=== PATIENT | male | born 2005 | race Caucasian/White ===

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

== ENCOUNTER 2025-01-26 10:18 | Emergency (ER) | payer SELFPAY ==
--- NOTE | 2025-01-26 10:29 | ED_ITS ---
Discharge Plan Disposition Patient Disposition: Home, Self-Care Condition: Good Prescriptions Prescriptions: No Action Afrin (oxymetazoline) 0.05 % mist 2 spray intranasal Q12H PRN (Reason: nose bleed) 3 Days Qty: 15 0RF Referrals Follow up/Referrals: Logan Oviedo [Primary Care Provider, Medical] - See instructions Activity Restrictions/Add. Instructions Additional Instructions/Restrictions: If your nose bleeding returns please use Afrin in both sides of the nose, pinch yournose shut, and lean forward. 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 You should also use Vaseline inside of the nose to prevent your nasal passages from drying out from cold weather and causing bleeding. If you have recurrent bleeding that will not stop please return to the ER. Clinical Impressions Clinical Impression: Epistaxis Print Language Print Language: Serbian Discharge ED Provider: Mitch Andujar General Adult HPI General Stated complaint: nose bleeds appr. 3 wks Time Seen by Provider: 01/26/25 10:20 History of Present Illness HPI narrative: This is a 19-year-old male patient, with no past medical history no daily medications, who is presenting to the emergency department today for evaluation of epistaxis. Patient states that he has had epistaxis nearly daily over the course of the last 1 to 2 weeks. He states that over the last 2 to 3 days he has also felt under the weather with upper respiratory symptoms, including rhinorrhea and congestion. He has tried compressing his nose and leaning forward when his bleeding occurs. He states that today he performed this maneuver but his nose continued bleeding after approximately 15 minutes so he went to an urgent care for evaluation and they referred him here for higher level of care. By the time he arrived here his nasal bleeding had stopped Related Data Previous Rx's ?Medication ?Instructions ?Recorded oxymetazoline 0.05 % nasal mist 2 spray intranasal Q12 H PRN nose 07/03/22 (Afrin (oxymetazoline)) bleed 3 days #15 mL Allergies Allergy/AdvReac Type Severity Reaction Status Date / Time No Known Allergies Allergy Verified 07/03/22 20:23 [facility] Disclaimer: The information contained in this section may have been updated after the patient was seen, as this information can be updated by other users. Social History (Updated 07/04/22 @ 08:51 by Brown Brown APRN) Smoking Status: Never smoker alcohol intake: never current occupational status: employed Travel in the last 8 weeks?: None ROS Obtained: Yes Systems reviewed as appropriate & no additional complaints except as documented Physical Exam General General appearance: other (See MDM) Respiratory Respiratory exam: Present other (See MDM) Cardiovascular Cardiovascular exam: Present other (See MDM) Neurological Exam Neurological exam: Present other (See MDM) Medical Decision Making Medical Records Medical records reviewed: Yes I reviewed the patient's medical records. Screening: Per USPSTF and CDC recommendations, given the prevalence of disease in our region, it is our hospital?s policy to screen for HIV and viral Hepatitis for all patients aged 18 and over and those with ongoing risk factors. Marcello Inquiry Pt receiving controlled substance: No Marcello was queried for this patient: No Medical Decision Narrative: In summary, this is a 19-year-old male patient who is presenting to the Emergency Department today for evaluation of epistaxis. The patient states that this epistaxis began approximate 15 minutes prior to arrival and he tried to seek care at an urgent care treatment center and they referred him here for further evaluation. Symptoms resolved by the time of arrival. He does not have any comorbidities of the complicate his medical management or care. On initial evaluation of the patient they were resting comfortably in no acute distress and nontoxic in appearance. They are hemodynamically stable, saturating well room air, and are neurologically intact. On physical examination his heart and lungs clear to auscultation bilaterally. There is no hemorrhage actively down the posterior pharynx. Upon examination of the nares the patient does have mucosal erosion of the anterior nasal septum of the right nare. There is dried blood present in both nares. There is no active bleeding currently. Differential diagnosis includes anterior epistaxis, posterior epistaxis, anemia, coagulopathy, among others. The patient is not currently having any symptoms of anemia such as orthostatic near syncope, lightheadedness, dyspnea, or pallor. We have discussed obtaining labs to check his coagulation studies and blood counts and the patient does not want to pursue this at this time. We have discussed precautionary measures she can take including [place] nasal saline spray as well as Vaseline within the naris to prevent bleeding and using Afrin nasal spray when bleeding occurs to obtain hemostasis. The patient would like to use these conservative therapies at home and forego further testing here today. At this time all questions have been answered and all parties are agreeable with the decision to discharge Critical Care Critical Care Time Critical Care Time: No
[2025-01-26 10:33] VITALS: BP 130/78; PULSE 80; RESP 20; TEMP 36.8; O2SAT 98
--- OUTSIDE RECORDS SUMMARY | 2025-01-26 10:35 | XMS_ITS | Clinical Summary ---
Author Organization [facility] Address [address] [place] [address] Care Team Providers Care Director Of Application Development Name Role Phone Pcp, No Primary Care Provider Unavailabl e Allergies No known active allergies Medications No known medications Social History Tobacco Use Types Packs/Day Years Used Date Smoking Tobacco: Never Assessed Sex and Gender Information Value Date Recorded Sex Assigned at Not on file Legal Sex Male 2:24 PM EDT Gender Identity Not on file Sexual Orientation Not on file Last Filed Vital Signs Vital Sign Reading Time Taken Comments Blood Pressure 126/86 11/26/2022 11:27 AM EDT Pulse 68 11/11/2022 2:28 PM EDT Temperature 37.2 C (99 F) 11/11/2022 2:28 PM EDT Respiratory Rate 20 11/11/2022 2:28 PM EDT Oxygen Saturation 97% 11/11/2022 2:28 PM EDT Inhaled Oxygen Concentration - - Weight 67.6 kg (149 lb) 11/26/2022 11:27 AM EDT Height 165.1 cm (5' 5 ) 11/26/2022 11:27 AM EDT Body Mass Index 24.79 11/26/2022 11:27 AM EDT Body Mass Index Percentile 83.02% 11/26/2022 11: 27 AM EDT Growth Chart: CDC (Boys, 2-2 0 Years) Plan of Treatment Health Maintenance Due Date Last Done Comments [facility]-Depression Screening 2005 [facility]-HIV Screening 2005 [facility]-Hepatitis C Screening 2005 [facility]-Infant/Child/Adol SDOH Screenings 2005 Fluoride Varnish 03/29/2006 HPV Vaccines (2 - Male 2-dose series) 04/23/2017 10/22/2016 [facility]- SDOH Screenings 07/28/2023 [facility]-Adult SDOH Screenings 07/28/2023 [id number] Vaccine ( season) 2024 [facility]-Influenza Vaccine (#1) 10/25/202412/22, 01/19/2014, 02/02/2013, Additional history exists [facility]-DTaP,Tdap,and Td Vaccines (7 - Td or Tdap) 10/22/2026 10/22/2016, 09/01/2009, 03/12/2007, Additional history exists [facility]-Zoster Vaccines (1 of 2) 07/28/2055 09/01/2009, 09/02/2006, 07/29/2006 [facility]-Pneumococcal Vaccine: Pediatrics (0 to 5 Years) and At-Risk Patients (6 to 49 Years) Aged Out 07/08/2006, 05/06/2006 No longer eligibl e based on patient's age to complete this topic [facility]-HIB Vaccines Completed 09/02/2006, , 05/06/2006 [facility]-Hepatitis B Vaccines Completed 007, 07/08/2006, 05/06/2006 [facility]-Hepatitis A Vaccines Completed 03/12/2007, 08/24 [facility]-IPV Vaccines Completed 09/01/2009, 11/2006, 07/08/2006, Additional history exists [facility]-Varicella Vaccines Completed 0, 09/02/2006, 07/29/2006 [facility]-Rotavirus Vaccines Aged Out No lo nger eligible based on patient's age to complete this topic Insurance [employer] Care Teams Director Of Application Development Relationship Specialty Start Date End Date PcpBibi [facility] [place] [address] PCP - General Family Medicine 11/11/22
--- OUTSIDE RECORDS SUMMARY | 2025-01-26 10:35 | XMS_ITS | Clinical Summary ---
Author Organization [facility] Address [address] [place] [address] Care Team Providers Care Registered Dietetic Technician Name Role Phone Logan Oviedo MD Primary Care Provider [phone] Allergies No known active allergies Medications No known medications Social History Tobacco Use Types Packs/Day Years Used Date Smoking Tobacco: Never Assessed Abuse Screen Answer Date Recorded Unsafe at Home or Work/School Not on file Feels Threatened by Someone? Not on file 12/2022 Does Anyone Keep You from Co ntacting Others or Doint Things Outside the Home? Not on file 12/04/2022 Physical Sign of Abuse Present Not on file 1 Housing Stability Answer Date Recorded Current Living Arrangements Not on file 11/24 Potentially Unsafe Housing Conditions Not on mitch e 12/04/2022 Family and Community Support Answer Luis Eduardo e Recorded Help with Day-to-Day Activities Not on file 12/04/2022 Lonely or Isolated Not on file 12/04/2022 Employment Answer Date Recorded Do you want help finding or keeping work or a adina b? Not on file 12/04/2022 Disabilities Answer Date Recorded Concentrating, Remembering, or Making Decisions Difficulty Not on file 12/04/2022 Doing Errands Independently Difficulty Not on fi le 12/04/2022 Education Answer Date Recorded Help with school or training? Not on file Preferred Language Not on file 12/04/2022 Sex and Gender Information Value Date Recorded Sex Assigned at Not on file Legal Sex Male 1:58 PM EDT Gender Identity Not on file Sexual Orientation Not on file Last Filed Vital Signs Vital Sign Reading Time Taken Comments Blood Pressure 100/68 10/01/2017 2:02 PM EDT Pulse 95 10/01/2017 2:02 PM EDT Temperature - - Respiratory Rate 20 10/01/2017 2:02 PM EDT Oxygen Saturation 97% 10/01/2017 2:02 PM EDT Inhaled Oxygen Concentration - - Weight 52.4 kg (115 lb 9.6 oz) 10/01/2017 2:02 P M EDT Height 144.8 cm (4' 9 ) 10/01/2017 2:02 PM EDT Body Mass Index 25.02 10/01/2017 2:02 PM EDT Body Mass Index Percentile 95.49% 10/01/2017 2:0 2 PM EDT Growth Chart: CDC (Boys, 2-2 0 Years) Plan of Treatment Health Maintenance Due Date Last Done Comments ANNUAL PHYSICAL 10/01/2017 HEPATITIS C SCREENING 10/01/2017 HPV VACCINES (1 - Male 3-dos e series) 2020 MENINGOCOCCAL B VACCINE (1 o f 2 - Standard) 2021 TDAP/TD VACCINES (1 - Tdap) 2024 INFLUENZA VACCINE 09/24/2024 MENINGOCOCCAL VACCINE Aged Out No bandar volodymyr eligible based on patient's age to complete this topic Pneumococcal Vaccine 0-49 Aged Out No longer eligible based on patient's age to complete this topic Insurance [id number] MEDICAID Care Teams Registered Dietetic Technician Relationship Specialty Start Date End Date Logan Oviedo MD [address] [place] [address] [place] [address] PCP - General Internal Medicine 11/25/22
== END 2025-01-26 10:34 | disposition home or self-care (01) ==
LOC: ER 10:32
PROVIDERS: Emergency Provider Student in an Organized Health Care Education/Training Program; PCP Internal Medicine
DX: R04.0 Epistaxis (principal)
CPT/HCPCS: 99211; 99282